=== PATIENT | female | born 1985 | race Caucasian/White ===

== ENCOUNTER 2017-04-19 08:32 | Emergency (ER) | payer MEDICAID ==
[~2017-04-19] VITALS: Ht 167.6 cm; Wt 84.0 kg
[2017-04-19 08:36] VITALS: BP 124/65
--- NOTE | 2017-04-19 08:40 | NUR ---
PT AMB TO BED8
--- NOTE | 2017-04-19 08:42 | NUR ---
Lisa goldberg in [facility] - 04/19/17 at 0950 by [email or web address] PT AMB TO BED8
--- NOTE | 2017-04-19 08:42 | NUR ---
31/F BIB SELF C/O N/V & EPIGASTRIC PAIN X 3 DAYS. PT STS WORSE AT NIGHT WHEN LAYING DOWN. PAIN RADIATES TO MID BACK . SKIN IS PINK/WARM/DRY; AAOX4 WITH EVEN AND STEADY GAIT; LUNGS CLEAR BL; HR EVEN AND REGULAR; PT DENIES ANY FEVER,PATIENT STATES PAIN OF 8/10 AT THIS TIME; VSS; PATIENT POSITIONED FOR COMFORT; HOB ELEVATED; BEDRAILS UP X2; BED DOWN. ER MD MADE AWARE OF PT STATUS.
[2017-04-19] MEDS ORDERED: HYDROmorphone 1 MG/ML AMP IVP ONE (09:05)
[2017-04-19] MEDS ORDERED: ONDANSETRON 4 MG/2 ML VIAL IVP ONE (09:05)
[2017-04-19] MEDS ORDERED: NACL 0.9% 1,000 ML IV ONE (09:05)
--- NOTE | 2017-04-19 09:06 | NUR ---
INSERTED IV CATH 20G RAC. PT TOLERATED PROCEDURE WELL. IV PATENT/INTACT. GAVE MEDS ORDER. Addendum: 04/19/17 at 09 by [email or web address] LAB AT BEDSIDE. Addendum: 04/19/17 at 930 by [email or web address] PT C/O EPIGASTRIC PAIN 05/24 & N/V .
[2017-04-19 09:19] LABS: BASOPHILS # (AUTO) 0.2 K/uL (0.00-0.22); EOSINOPHILS # (AUTO) 0.2 K/uL (0-0.4); HEMATOCRIT 38.4 % (36-48); HEMOGLOBIN 12.8 g/dL (12.0-16.0); LYMPHOCYTES # (AUTO) 2.1 K/uL (2.5-16.5); LYMPHOCYTES % (AUTO) 26.8 % (20.5-51.1); MEAN CORPUSCULAR HEMOGLOBIN 27 pg (27-31); MEAN CORPUSCULAR HGB CONC 33 g/dL (33-37); MEAN CORPUSCULAR VOLUME 82 fL (80-94); MONOCYTES # (AUTO) 0.4 K/uL (0.8-1.0); MONOCYTES % (AUTO) 4.6 % (1.7-9.3); NEUTROPHILS # (AUTO) 4.8 K/uL (1.8-7.7); NEUTROPHILS % (AUTO) 64.6 % (42.2-75.2); PLATELET COUNT (AUTO) 202 K/uL (140-450); RED CELL DISTRIBUTION WIDTH 13.2 % (11.6-13.7); WHITE BLOOD COUNT (AUTO) 7.7 K/uL (4.8-10.8)
[2017-04-19 09:21] LABS: APPEARANCE,URINE CLEAR (CLEAR); BILIRUBIN,URINE 1+ (NEGATIVE); BLOOD, URINE 2+ (NEGATIVE); COLOR,URINE YELLOW (YELLOW); LEUKOCYTE ESTERASE ,URINE NEGATIVE (NEGATIVE); NITRITE, URINE NEGATIVE (NEGATIVE); PROTEIN,URINE TRACE (NEGATIVE); UGLUCOSE NEGATIVE (NEGATIVE)
--- NOTE | 2017-04-19 09:25 | NUR ---
Patient appears to be resting comfortably in bed. BP 132/67, Respirations even and unlabored.WILL CONTINUE TO MONITOR
--- NOTE | 2017-04-19 09:32 | NUR ---
PT DENIES PAIN OR N/V AT THIS TIME.Patient appears to be resting comfortably in bed. Vital Signs within normal limits. Respirations even and unlabored.WILL CONTINUE TO MONITOR.
[2017-04-19 09:35] LABS: ALBUMIN 3.7 g/dL (3.4-5.0); ANION GAP 9.2 (8-16); CALCIUM 8.3 mg/dL (8.5-10.1); CARBON DIOXIDE 27.5 mmol/L (21-32); CREATININE 0.7 mg/dL (0.6-1.3); POTASSIUM 3.7 mmol/L (3.5-5.1); TOTAL BILIRUBIN 0.9 mg/dL (0.0-1.0); TOTAL PROTEIN, SERUM 7.6 g/dL (6.4-8.2)
[2017-04-19 09:43] LABS: BACTERIA,URINE 1+ /HPF (None Seen); ICTOTEST NEGATIVE (NEGATIVE); MUCUS,URINE 1+ /LPF (None Seen); RBC,URINE NONE SEEN /HPF (0-5); YEAST,URINE Few /HPF (None Seen)
--- NOTE | 2017-04-19 10:10 | NUR ---
ER MD DR ALVARADO REEVALUATING PT AT BEDSIDE.
[2017-04-19] MEDS ORDERED: LEVOFLOXACIN 750 MG TAB PO ONE (11:25)
[2017-04-19] MEDS ORDERED: LEVOFLOXACIN 250 MG TAB PO SCH (11:38)
--- NOTE | 2017-04-19 11:45 | NUR ---
PT TAKEN TO CT VIA W/C ACCOMPANIED BY [employer].
--- NOTE | 2017-04-19 12:04 | NUR ---
PT BACK FROM CT
--- NOTE | 2017-04-19 13:26 | NUR ---
ER MD DR ALVARADO REEVALUATING PT AT BEDSIDE.
[2017-04-19 13:57] VITALS: BP 121/61
--- NOTE | 2017-04-19 13:57 | NUR ---
Patient discharged with v/s stable. Written and verbal after care instructions given and explained. Patient alert, oriented and verbalized understanding of instructions. Ambulatory with steady gait. All questions addressed prior to discharge. ID band removed. Patient advised to follow up with PMD. Rx of CIPRO, NORCO, ZOFRAN & PYRIDIUM given. Patient educated on indication of medication including possible reaction and side effects. Opportunity to ask questions provided and answered.
== END 2017-04-19 13:57 | disposition home or self-care (01) ==
LOC: MED 08:32
DX: N39.0 Urinary tract infection, site not specified (principal)
CPT/HCPCS: 36415; 74177; 80053; 81001; 81025; 82150; 83690; 85025; 87086; 96361; 96374; 96375; 99285; J1170; J2405; J7030; Q9967; J1956